=== PATIENT | male | born 1980 | race African-American/Black ===

== ENCOUNTER 2020-12-18 13:18 | Emergency (ER) | payer MEDICAID, OTHER ==
[~2020-12-18] VITALS: Ht 182.9 cm; Wt 97.5 kg
--- NOTE | 2020-12-18 13:29 | NUR ---
PATIENT PLACED IN C-COLLAR AND W/C AT THIS TIME
[2020-12-18] MEDS ORDERED: KETOROLAC 30 MG/1 ML IM ONE (16:00)
[2020-12-18] MEDS ORDERED: CYCLOBENZAPRINE 10 MG TABLET PO ONE (16:00)
[2020-12-18] MEDS ORDERED: CYCLOBENZAPRINE 10 MG TABLET ONE (16:01)
[2020-12-18] MEDS ORDERED: KETOROLAC 30 MG/1 ML ONE (16:01)
--- NOTE | 2020-12-18 16:27 | NUR ---
PT IS TAKING A TAXI HOME. VS STABLE. PT IS A&O X4 AND IS ABLE TO SAFELY AMBULATE AROUND ROOM. PT DISCHARGED PER KWESI RODRIGEZ
[2020-12-18 16:28] VITALS: BP 143/76
== END 2020-12-18 16:30 | disposition home or self-care (01) ==
LOC: ED 16:25
DX: S16.1XXA Strain of muscle, fascia and tendon at neck level, initial encounter (principal); S39.012A Strain of muscle, fascia and tendon of lower back, initial encounter; V49.49XA Driver injured in collision with other motor vehicles in traffic accident, initial encounter; Y92.488 Other paved roadways as the place of occurrence of the external cause; Y93.89 Activity, other specified; Y99.8 Other external cause status
CPT/HCPCS: 72020; 72050; 72072; 72110; 96372; 99284; J1885